=== PATIENT | male | born 1990 | race Caucasian/White ===

== ENCOUNTER → 2016-04-13 | Outpatient (REF) | payer OTHER ==
[~2016-04-13] MED LIST: ADDE20TA PO; ADDE30CA PO; BACT2CRE TOP; BACT800T5 PO; BUPR150T3 PO; HYDR-3363 PO; HYDRO50TAB PO; MELA10CA PO; PAXI10TA2 PO; TRAZ50TA2 PO; WELLTAB40 PO; ZOLO50TA PO; no home meds
[2016-04-13 12:51] LABS: ALBUMIN 4.3 GM/DL (3.2-5.2); ALBUMIN/GLOBULIN RATIO 1.26 (1.00-1.93); BILIRUBIN,DIRECT 0.1 MG/DL (0.0-0.2); BILIRUBIN,TOTAL 0.6 MG/DL (0.2-1.0); TOTAL PROTEIN 7.7 GM/DL (6.4-8.2)
[2016-04-15 14:16] LABS: HEPATITIS C QUANTITATION 4040 IU/mL (.)
== END ==
LOC: M SFHCPLAZ 08:53
PROVIDERS: ATTEND Internal Medicine Infectious Disease
DX: B19.20 Unspecified viral hepatitis C without hepatic coma (principal)

== ENCOUNTER → 2016-09-24 | Outpatient (CLI) | payer OTHER ==
[~2016-09-24] MED LIST changes: +PAXI10TA12 PO; -PAXI10TA2 PO
--- NOTE | 2016-09-24 15:29 | REP ---
THORACIC SPINE: Three AP and lateral views of the thoracic spine are performed and demonstrate no evidence of compression fracture or malalignment. There is normal thoracic kyphosis. There is very mild disc space narrowing and subchondral sclerosis at a few consecutive mid thoracic disc levels. The posterior elements are intact. There is mild curvature toward the right. IMPRESSION: Mild degenerative disc changes mid thoracic spine region. Mild curvature toward the right. Signed by Cornelius Cheney MD 09/24/2016 03:50 P
== END ==
LOC: M WUC 14:47
PROVIDERS: ATTEND Physician Assistant
DX: M54.6 Pain in thoracic spine (principal); M40.04 Postural kyphosis, thoracic region; M51.84 Other intervertebral disc disorders, thoracic region

== ENCOUNTER → 2016-10-19 | Outpatient (REF) | payer OTHER ==
[2016-10-19 12:27] LABS: ALBUMIN 4.6 GM/DL (3.2-5.2); ALBUMIN/GLOBULIN RATIO 1.21 (1.00-1.93); BILIRUBIN,DIRECT 0.4 MG/DL (0.0-0.2); BILIRUBIN,TOTAL 1.4 MG/DL (0.2-1.0); TOTAL PROTEIN 8.4 GM/DL (6.4-8.2)
[2016-10-21 00:06] LABS: HEPATITIS C QUANTITATION 506810 IU/mL (.)
== END ==
LOC: M SFHCPLAZ 10:07
PROVIDERS: ATTEND Internal Medicine Infectious Disease
DX: B19.20 Unspecified viral hepatitis C without hepatic coma (principal)

== ENCOUNTER 2016-11-18 10:48 | Emergency (ER) | payer OTHER ==
[~2016-11-18] VITALS: Ht 188 cm; Wt 86.4 kg
[2016-11-18 12:45] VITALS: BP 135/71
== END 2016-11-18 12:46 | disposition home or self-care (01) ==
LOC: M ED 10:48
DX: F11.10 Opioid abuse, uncomplicated (principal); F32.9 Major depressive disorder, single episode, unspecified

== ENCOUNTER → 2016-11-23 | Outpatient (REF) | payer OTHER ==
[2016-11-23 19:44] LABS: ALBUMIN 4.3 GM/DL (3.2-5.2); ALBUMIN/GLOBULIN RATIO 1.13 (1.00-1.93); BILIRUBIN,DIRECT 0.2 MG/DL (0.0-0.2); BILIRUBIN,TOTAL 0.6 MG/DL (0.2-1.0); TOTAL PROTEIN 8.1 GM/DL (6.4-8.2)
[2016-11-26 10:14] LABS: HEPATITIS C QUANTITATION 59120 IU/mL (.)
== END ==
LOC: M SFHCPLAZ 15:56
PROVIDERS: ATTEND Internal Medicine Infectious Disease
DX: B19.20 Unspecified viral hepatitis C without hepatic coma (principal)

== ENCOUNTER → 2016-11-30 | Outpatient (REF) | payer OTHER | LOC: CANPREREF → M SFHCPLAZ 08:41 | PROVIDERS: ATTEND Internal Medicine Infectious Disease | DX: B19.20 Unspecified viral hepatitis C without hepatic coma (principal); Z53.8 Procedure and treatment not carried out for other reasons ==

== ENCOUNTER → 2017-07-08 | Outpatient (CLI) | payer MEDICAID | LOC: M OUTALCOH 07:39 | DX: Z13.9 Encounter for screening, unspecified (principal); F11.20 Opioid dependence, uncomplicated; F15.20 Other stimulant dependence, uncomplicated; F10.20 Alcohol dependence, uncomplicated ==

== ENCOUNTER 2017-07-20 15:42 | Outpatient (RCR) | payer MEDICAID | END 2017-08-05 | LOC: M OUTALCOH 07-26 14:00 | DX: F11.20 Opioid dependence, uncomplicated (principal); F12.20 Cannabis dependence, uncomplicated; F15.20 Other stimulant dependence, uncomplicated ==

== ENCOUNTER 2017-08-16 11:19 | Outpatient (RCR) | payer MEDICAID | END 2017-09-04 | LOC: M OUTALCOH 08-18 16:00 | DX: F11.20 Opioid dependence, uncomplicated (principal); F12.20 Cannabis dependence, uncomplicated; F15.20 Other stimulant dependence, uncomplicated ==

== ENCOUNTER 2017-09-15 10:24 | Outpatient (RCR) | payer MEDICAID | END 2017-10-05 | LOC: M OUTALCOH 09-22 11:00 | DX: F11.20 Opioid dependence, uncomplicated (principal); F12.20 Cannabis dependence, uncomplicated; F15.20 Other stimulant dependence, uncomplicated ==

== ENCOUNTER 2019-11-12 18:15 | Emergency (ER) | payer MEDICAID, OTHER ==
[~2019-11-12] VITALS: Ht 188 cm; Wt 94.6 kg
[~2019-11-12 18:15] MED LIST changes: +HYDR-4274 PO; -HYDRO50TAB PO
[2019-11-12 18:16] VITALS: BP 150/96
[2019-11-12] MEDS ORDERED: QUET5TAB (18:37)
[2019-11-12] MEDS ORDERED: GABA-845 (18:37)
[2019-11-12] MEDS ORDERED: SUBO8MIS (18:37)
[2019-11-12] MEDS ORDERED: FLUO20CA22 (18:37)
[2019-11-12 20:01] LABS: BASO % 0.5 % (0.0-1.0); EOS # 0.2 10^3/uL (0.0-0.5); EOS % 2.1 % (0.0-3.0); HEMATOCRIT 43.1 % (42.0-52.0); HEMOGLOBIN 14.3 g/dl (13.5-17.5); LYMPH # 2.2 10^3/uL (1.5-5.0); LYMPH % 25.4 % (24.0-44.0); MEAN CORPUSCULAR HEMOGLOBIN 28.9 pg (27.0-33.0); MEAN CORPUSCULAR HGB CONC 33.2 g/dl (32.0-36.5); MEAN CORPUSCULAR VOLUME 87.2 fl (80.0-96.0); MONO % 10.9 % (0.0-5.0); NEUTROPHILS # 5.3 10^3/uL (1.5-8.5); NEUTROPHILS % 60.9 % (36.0-66.0); PLATELET COUNT, AUTOMATED 255 10^3/uL (150-450); RED BLOOD COUNT 4.94 10^6/uL (4.30-6.10); WHITE BLOOD COUNT 8.7 10^3/uL (4.0-10.0)
[2019-11-12 20:26] LABS: ALBUMIN 4.2 GM/DL (3.2-5.2); ALT/SGPT 20 U/L (12-78); BILIRUBIN,DIRECT 0.1 MG/DL (0.0-0.2); BILIRUBIN,TOTAL 0.3 MG/DL (0.2-1.0); BLOOD UREA NITROGEN 11 MG/DL (7-18); C REACTIVE PROTEIN QUANTITATIV 0.48 MG/DL (0.00-0.30); CALCIUM LEVEL 9.4 MG/DL (8.5-10.1); CARBON DIOXIDE LEVEL 28 MEQ/L (21-32); CHLORIDE LEVEL 103 MEQ/L (98-107); GLOMERULAR FILTRATION RATE > 60.0 (>60); GLUCOSE, FASTING 100 MG/DL (70-100); POTASSIUM SERUM 3.8 MEQ/L (3.5-5.1); SODIUM LEVEL 138 MEQ/L (136-145)
[2019-11-12 21:06] LABS: ERYTHROCYTE SEDIMENTATION RATE 12 mm/hr (0-15)
[2019-11-12 21:49] LABS: CHLAMYDIA DNA AMPLIFICATION POSITIVE (NEGATIVE); GC DNA AMPLIFICATION NEGATIVE (NEGATIVE)
[2019-11-12] MEDS ORDERED: MUPI2OI TOP (22:18)
[2019-11-12] MEDS ORDERED: cefTRIAXone SOD 250MG VIAL (J0696 PER 250MG) IM ONE (22:30)
[2019-11-12] MEDS ORDERED: LIDOCAINE 1% SDV 5ML VIAL DILUENT ONE (22:30)
[2019-11-12] MEDS ORDERED: AZITHROMYCIN 250MG TABLET PO ONE (22:30)
[2019-11-14 11:29] LABS: HEPATITIS B SURFACE ANTIBODY POSITIVE (POSITIVE)
[2019-11-14 11:39] LABS: HEPATITIS B SURFACE ANTIGEN NEGATIVE (NEGATIVE)
[2019-11-14 12:09] LABS: HIV 1&2 SCREEN CENTAUR NEGATIVE (NEGATIVE)
[2019-11-14 12:15] LABS: HEPATITIS C VIRUS ABY INDEX > 11.0 INDEX (<0.8)
== END 2019-11-12 22:49 | disposition home or self-care (01) ==
LOC: M ED 18:15
DX: A56.8 Sexually transmitted chlamydial infection of other sites (principal); F42.4 Excoriation (skin-picking) disorder; F11.188 Opioid abuse with other opioid-induced disorder; R56.9 Unspecified convulsions; F33.9 Major depressive disorder, recurrent, unspecified; F41.9 Anxiety disorder, unspecified; B19.20 Unspecified viral hepatitis C without hepatic coma; Z79.899 Other long term (current) drug therapy; F17.210 Nicotine dependence, cigarettes, uncomplicated
CPT/HCPCS: 36415; 80048; 80076; 81001; 85025; 85652; 86140; 86706; 86780; 86803; 87040; 87340; 87389; 87521; 87661; 96372; 99283; J0696

== ENCOUNTER 2020-09-07 15:03 | Inpatient (IN) | payer MEDICAID, OTHER ==
[~2020-09-07] VITALS: Ht 188 cm; Wt 97.1 kg
[~2020-09-07 15:03] MED LIST changes: +BUPR150T12 PO; -BUPR150T3 PO; +BUPR8SUB; +FLUO20CA22 PO; +GABA-283; +MUPI2OI TOP; +NALO25TA; +QUET50TA3; +SUBO8MIS
[2020-09-07 15:58] LABS: HEMOGLOBIN 12.8 g/dl (13.5-17.5); MEAN CORPUSCULAR HEMOGLOBIN 28.6 pg (27.0-33.0); MEAN CORPUSCULAR VOLUME 89.5 fl (80.0-96.0); PLATELET COUNT, AUTOMATED 220 10^3/uL (150-450); RED BLOOD COUNT 4.47 10^6/uL (4.30-6.10); WHITE BLOOD COUNT 5.9 10^3/uL (4.0-10.0)
[2020-09-07 16:46] LABS: ACETAMINOPHEN LEVEL < 2.0 UG/ML (10.0-30.0); ALBUMIN 4.1 GM/DL (3.2-5.2); ALT/SGPT 19 U/L (12-78); BILIRUBIN,DIRECT < 0.1 MG/DL (0.0-0.2); BILIRUBIN,TOTAL 0.2 MG/DL (0.2-1.0); BLOOD UREA NITROGEN 13 MG/DL (7-18); CALCIUM LEVEL 8.7 MG/DL (8.5-10.1); CARBON DIOXIDE LEVEL 32 MEQ/L (21-32); CHLORIDE LEVEL 106 MEQ/L (98-107); CREATININE FOR GFR 0.89 MG/DL (0.70-1.30); ETHYL ALCOHOL (ETHANOL) < 0.003 % (0.000-0.010); GLOMERULAR FILTRATION RATE > 60.0 (>60); GLUCOSE, FASTING 120 MG/DL (70-100); POTASSIUM SERUM 4.5 MEQ/L (3.5-5.1); SALICYLATE LEVEL < 1.7 MG/DL (5.0-30.0); SODIUM LEVEL 139 MEQ/L (136-145); THYROID STIMULATING HORMONE 0.654 uIU/ML (0.358-3.740); TOTAL PROTEIN 6.9 GM/DL (6.4-8.2)
[2020-09-07] MEDS ORDERED: PRAZ2CAP PO (18:38)
[2020-09-07] MEDS ORDERED: BUPR1FIL SL (18:38)
[2020-09-07] MEDS ORDERED: CLON-412 PO (18:38)
[2020-09-07] MEDS ORDERED: TOPI25TA10 PO (18:38)
[2020-09-07] MEDS ORDERED: GABA-283 PO (18:38)
[2020-09-07] MEDS ORDERED: TRAZ-252 PO (18:38)
[2020-09-07 19:01] LABS: AMPHETAMINES LEVEL URINE NEGATIVE (NEGATIVE); BARBITURATES URINE NEGATIVE (NEGATIVE); BENZODIAZEPINES URINE NEGATIVE (NEGATIVE); CANNABINOIDS URINE POSITIVE (NEGATIVE); COCAINE METABOLITE URINE NEGATIVE (NEGATIVE); METHADONE URINE NEGATIVE (NEGATIVE); OPIATES URINE NEGATIVE (NEGATIVE); PHENCYCLIDINE URINE NEGATIVE (NEGATIVE)
[2020-09-07] MEDS ORDERED: TOPIRAMATE (TopAMAX) 25 MG TAB PO ONE (19:25)
[2020-09-07] MEDS ORDERED: GABAPENTIN 400MG CAP PO ONE (19:25)
[2020-09-07] MEDS ORDERED: traZODone 50 MG TAB PO ONE (19:25)
[2020-09-07] MEDS: PRAZOSIN 1 MG CAP PO SCH ×2 (20:35→20:39)
[2020-09-08] MEDS ORDERED: cloNIDine 0.1MG TABLET PO PRN (08:45)
[2020-09-08] MEDS ORDERED: FLUoxetine 20 MG CAP PO ONE (08:45)
[2020-09-08] MEDS ORDERED: NICOTINE 21MG/24HR 1 EA TRANSDERMAL TD ONE (08:45)
[2020-09-08] MEDS ORDERED: GABAPENTIN 400MG CAP PO ONE ×2 (08:45→21:00)
[2020-09-08] MEDS: BUPRENORPHINE/NALOXONE 8-2MG SUBLINGUAL TABLET(SUBOXONE) SL SCH (09:02)
--- NOTE | 2020-09-08 18:10 | ECGEPIP ---
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
[2020-09-08] MEDS ORDERED: ACETAMINOPHEN TAB 650MG DOSE (2X325MG) PO ONE (21:00)
[2020-09-08] MEDS ORDERED: TOPIRAMATE (TopAMAX) 25 MG TAB PO ONE (21:00)
[2020-09-08] MEDS ORDERED: traZODone 50 MG TAB PO ONE (21:00)
[2020-09-08] MEDS: PRAZOSIN 1 MG CAP PO SCH (21:33)
[2020-09-09] MEDS ORDERED: OLANZapine ORAL DISINTEGRATING TAB 5MG PO ONE (02:40)
[2020-09-09] MEDS: BUPRENORPHINE/NALOXONE 8-2MG SUBLINGUAL TABLET(SUBOXONE) SL SCH (11:01)
[2020-09-09] MEDS: GABAPENTIN 400MG CAP PO SCH ×3 (11:01→21:11)
[2020-09-09] MEDS: FLUoxetine 20 MG CAP PO SCH (11:01)
[2020-09-09] MEDS ORDERED: NICOTINE 21MG/24HR 1 EA TRANSDERMAL TD ONE (12:45)
[2020-09-09 13:19] LABS: HEPATITIS B SURFACE ANTIBODY POSITIVE (POSITIVE); HEPATITIS B SURFACE ANTIGEN NEGATIVE (NEGATIVE); HIV 1&2 SCREEN CENTAUR NEGATIVE (NEGATIVE)
[2020-09-09 14:18] LABS: HEPATITIS C VIRUS ABY INDEX > 11.0 INDEX (<0.8)
[2020-09-09] MEDS ORDERED: traZODone 50 MG TAB PO SCH (21:00)
[2020-09-09] MEDS ORDERED: TOPIRAMATE (TopAMAX) 25 MG TAB PO SCH (21:00)
[2020-09-09] MEDS: PRAZOSIN 1 MG CAP PO SCH (21:12)
[2020-09-09] MEDS ORDERED: cloNIDine 0.1MG TABLET PO ONE (21:30)
[2020-09-10] MEDS: GABAPENTIN 400MG CAP PO SCH ×3 (08:55→20:12)
[2020-09-10] MEDS: BUPRENORPHINE/NALOXONE 8-2MG SUBLINGUAL TABLET(SUBOXONE) SL SCH (08:55)
[2020-09-10] MEDS: FLUoxetine 20 MG CAP PO SCH (08:55)
[2020-09-10 11:35] LABS: RSV AMPLIFICATION NEGATIVE (NEGATIVE)
[2020-09-10] MEDS ORDERED: cloNIDine 0.1MG TABLET PO ONE (12:40)
[2020-09-10] MEDS ORDERED: traZODone 50 MG TAB PO PRN (12:55)
[2020-09-10] MEDS ORDERED: MOM 30ML SUSPENSION UDC PO PRN (12:55)
[2020-09-10] MEDS ORDERED: MAALOX 30 ML SUSP *UDC PO PRN (12:55)
[2020-09-10 14:52] VITALS: BP 123/69
[2020-09-10] MEDS: NICOTINE 21MG/24HR 1 EA TRANSDERMAL TD SCH (15:40)
[2020-09-10] MEDS: cloNIDine 0.1MG TABLET PO PRN (20:11)
[2020-09-10] MEDS: traZODone 50 MG TAB PO SCH (20:12)
[2020-09-10] MEDS: PRAZOSIN 1 MG CAP PO SCH (20:12)
[2020-09-10] MEDS: TOPIRAMATE (TopAMAX) 25 MG TAB PO SCH (20:12)
[2020-09-11] MEDS: ACETAMINOPHEN TAB 650MG DOSE (2X325MG) PO PRN (05:55)
[2020-09-11 06:22] VITALS: BP 142/74
[2020-09-11] MEDS: BUPRENORPHINE/NALOXONE 8-2MG SUBLINGUAL TABLET(SUBOXONE) SL SCH (08:13)
[2020-09-11] MEDS: GABAPENTIN 400MG CAP PO SCH ×3 (08:13→21:31)
[2020-09-11] MEDS: FLUoxetine 20 MG CAP PO SCH (08:13)
[2020-09-11] MEDS: NICOTINE 21MG/24HR 1 EA TRANSDERMAL TD SCH (08:14)
[2020-09-11] MEDS: cloNIDine 0.1MG TABLET PO PRN (09:57)
[2020-09-11] MEDS: OLANZapine ORAL DISINTEGRATING TAB 5MG PO PRN (15:19)
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
[2020-09-11] MEDS: PANTOPRAZOLE 40MG TAB (PROTONIX) PO SCH (17:48)
[2020-09-11 18:10] LABS: BASO % 0.7 % (0.0-1.0); EOS # 0.2 10^3/uL (0.0-0.5); EOS % 3.3 % (0.0-3.0); HEMATOCRIT 43.2 % (42.0-52.0); HEMOGLOBIN 14.1 g/dl (13.5-17.5); LYMPH # 2.7 10^3/uL (1.5-5.0); LYMPH % 45.9 % (24.0-44.0); MEAN CORPUSCULAR HEMOGLOBIN 28.7 pg (27.0-33.0); MEAN CORPUSCULAR HGB CONC 32.6 g/dl (32.0-36.5); MONO # 0.5 10^3/uL (0.0-0.8); MONO % 7.8 % (2.0-8.0); NEUTROPHILS # 2.5 10^3/uL (1.5-8.5); NEUTROPHILS % 42.3 % (36.0-66.0); PLATELET COUNT, AUTOMATED 240 10^3/uL (150-450); RED BLOOD COUNT 4.91 10^6/uL (4.30-6.10); WHITE BLOOD COUNT 5.8 10^3/uL (4.0-10.0)
[2020-09-11 19:22] VITALS: BP 129/65
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
[2020-09-11] MEDS: MIRALAX *UNIT DOSE* 17GM PACKET PO SCH (21:00)
[2020-09-11] MEDS: traZODone 50 MG TAB PO SCH (21:27)
[2020-09-11] MEDS: PRAZOSIN 1 MG CAP PO SCH (21:30)
[2020-09-11] MEDS: TOPIRAMATE (TopAMAX) 25 MG TAB PO SCH (21:31)
[2020-09-12 06:50] VITALS: BP 137/67
[2020-09-12] MEDS: MIRALAX *UNIT DOSE* 17GM PACKET PO SCH ×2 (08:05→20:11)
[2020-09-12] MEDS: BUPRENORPHINE/NALOXONE 8-2MG SUBLINGUAL TABLET(SUBOXONE) SL SCH (08:08)
[2020-09-12] MEDS: FLUoxetine 20 MG CAP PO SCH (08:08)
[2020-09-12] MEDS: NICOTINE 21MG/24HR 1 EA TRANSDERMAL TD SCH (08:08)
[2020-09-12] MEDS: GABAPENTIN 400MG CAP PO SCH (08:08)
[2020-09-12] MEDS: PANTOPRAZOLE 40MG TAB (PROTONIX) PO SCH ×2 (08:08→20:07)
[2020-09-12] MEDS: cloNIDine 0.1MG TABLET PO PRN ×2 (08:09→20:09)
[2020-09-12] MEDS: ACETAMINOPHEN TAB 650MG DOSE (2X325MG) PO PRN ×2 (08:46→20:11)
[2020-09-12] MEDS: OLANZapine ORAL DISINTEGRATING TAB 5MG PO PRN (10:32)
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
[2020-09-12] MEDS: BISACODYL 5 MG TAB PO SCH (15:34)
[2020-09-12] MEDS: GABAPENTIN 300 MG CAP PO SCH ×2 (15:34→20:06)
[2020-09-12 17:22] VITALS: BP 144/66
[2020-09-12 20:09] VITALS: BP 141/63
[2020-09-12] MEDS ORDERED: TOPIRAMATE (TopAMAX) 25 MG TAB PO SCH (21:00)
[2020-09-12] MEDS ORDERED: QUEtiapine FUMARATE 50MG TAB PO SCH (21:00)
[2020-09-13 06:00] VITALS: BP 114/54
[2020-09-13] MEDS: GABAPENTIN 300 MG CAP PO SCH (08:04)
[2020-09-13] MEDS: NICOTINE 21MG/24HR 1 EA TRANSDERMAL TD SCH (08:04)
[2020-09-13] MEDS: BISACODYL 5 MG TAB PO SCH (08:04)
[2020-09-13] MEDS: MIRALAX *UNIT DOSE* 17GM PACKET PO SCH (08:34)
[2020-09-13] MEDS: PANTOPRAZOLE 40MG TAB (PROTONIX) PO SCH (08:34)
[2020-09-13] MEDS: BUPRENORPHINE/NALOXONE 8-2MG SUBLINGUAL TABLET(SUBOXONE) SL SCH (08:34)
[2020-09-13] MEDS ORDERED: FLUoxetine 20 MG CAP PO SCH (09:00)
[2020-09-13] MEDS: ACETAMINOPHEN TAB 650MG DOSE (2X325MG) PO PRN (09:24)
--- NOTE | 2020-09-13 09:24 | MHIPNPDOC ---
[facility] Progress Note Progress Note DATE OF SERVICE: 09/13/20 The patient is tolerating the medication change very well and has no complaint of side effect. He slept very well last night with the Seroquel and denies any serious anxiety and denies any suicidal thoughts. He is being referred to [facility] for supportive living and he is willing to cooperate. He is not showing any acute withdrawal symptoms and maintaining good control and has no physical complaints and is willing to cooperate with discharge plan. HISTORY:. VITAL SIGNS: See below. NEW TEST RESULTS:. CURRENT MEDICATIONS: See below. MENTAL STATUS EXAMINATION: Patient is a 30-year old male, who is in no acute distress. Speech: Is rational and coherent. Language skills are fair. Thought processes including: Relevant but not very productive. Thought content: Denies any hallucination paranoia. Abstract reasoning, and com putation: Fair. Description of associations: Organized. Description of abnormal or psychotic thoughts: Denies any psychotic symptoms. Judgment: Fair. Insight: Fair.. Orientation: Oriented. Recent and remote memory: No gross impairment. Attention span and concentration: Fair. Language:. Fund of knowledge:. Mood: Moderately anxious. Affect: A little blunted but appropriate. DIAGNOSES: 1.. Depressive disorder NOS 2.. Polysubstance abuse 3.. ASSESSMENT: No new complaint and maintaining good control and willing to cooperate with discharge plan MANAGEMENT PLAN:. Is referred to TLS continue with the current medicine TIME SPENT: 20 minutes. Vital Signs Vital Signs Date Time Temp Pulse Resp B/P (MAP) Pulse Ox O2 Delivery O2 Flow Rate FiO2 09/13/20 06:00 97.9 65 20 114/54 (74) 100 09/12/20 06:50 Room Air Current Medications Current Medications Medications (Trade) Dose Ordered Sig/Padmaja Route PRN Reason Start Time Stop Time Status Last Admin Dose Admin Acetaminophen (Tylenol Tab) 650 mg Q6HP PRN PO HEADACHE or MILD DISCOMFORT 09/10/20 12:55 09/12/20 20:11 Al Hydrox/Mg Hydrox/Simethicone (Mylanta) 30 ml Q4HP PRN PO HEARTBURN/INDIGESTION 09/10/20 12:55 Bisacodyl (Dulcolax Tab) 5 mg DAILY PO 09/12/20 15:00 09/13/20 08:04 Buprenorphine/ Naloxone (Suboxone 8/2mg) 2 tab DAILY SL 09/08/20 09:00 09/10/20 13:04 DC 09/10/20 08:55 Buprenorphine/ Naloxone (Suboxone 8/2mg) 2 tab DAILY SL 09/11/20 09:00 09/13/20 08:34 Clonidine HCl (Catapres) 0.1 mg TID PRN PO ANXIETY 09/08/20 08:45 09/10/20 13:04 DC 09/08/20 13:11 Clonidine HCl (Catapres) 0.1 mg TID PRN PO ANXIETY 09/10/20 16:10 09/12/20 20:09 Fluoxetine HCl (PROzac) 20 mg DAILY PO 09/09/20 09:00 09/10/20 13:04 DC 09/10/20 08:55 Fluoxetine HCl (PROzac) 20 mg DAILY PO 09/11/20 09:00 09/12/20 10:45 DC 09/12/20 08:08 Fluoxetine HCl (PROzac) 40 mg DAILY PO 09/13/20 09:00 09/13/20 08:04 Gabapentin (Neurontin) 400 mg TID PO 09/09/20 09:00 09/10/20 13:04 DC 09/10/20 08:55 Gabapentin (Neurontin) 400 mg TID PO 09/10/20 16:00 09/12/20 10:45 DC 09/12/20 08:08 Gabapentin (Neurontin) 600 mg TID PO 09/12/20 16:00 09/13/20 08:04 Home Med (Med Rec Complete!) ASDIRECTED XX 09/07/20 18:45 09/07/20 18:49 DC Magnesium Hydroxide (Milk Of Magnesia) 30 ml DAILYPRN PRN PO CONSTIPATION 09/10/20 12:55 Nicotine (Nicoderm Cq 21mg) 1 patch DAILY TD 09/10/20 09:00 09/13/20 08:04 Olanzapine (ZyPREXA ZYDIS) 5 mg Q8HP PRN PO AGITATION 09/10/20 12:55 09/12/20 10:32 Pantoprazole Sodium (Protonix) 40 mg BID PO 09/11/20 17:25 09/12/20 20:07 Polyethylene Glycol (Miralax) 1 pkt BID PO 09/11/20 21:00 Prazosin HCl (Minipress) 2 mg QHS PO 09/07/20 21:00 09/07/20 21:00 DC Prazosin HCl (Minipress) 2 mg QHS PO 09/08/20 21:00 09/10/20 13:04 DC 09/09/20 21:12 Prazosin HCl (Minipress) 2 mg QHS PO 09/10/20 21:00 09/12/20 10:45 DC 09/11/20 21:30 Quetiapine Fumarate (SEROquel) 150 mg QHS PO 09/12/20 21:00 09/12/20 20:09 Topiramate (TopAMAX) 25 mg QHS PO 09/09/20 21:00 09/10/20 13:05 DC 09/09/20 21:11 Topiramate (TopAMAX) 25 mg QHS PO 09/10/20 21:00 09/12/20 10:45 DC 09/11/20 21:31 Topiramate (TopAMAX) 50 mg QHS PO 09/12/20 21:00 09/12/20 20:07 Trazodone HCl (Desyrel) 50 mg QHS PO 09/09/20 21:00 09/10/20 13:03 DC 09/09/20 21:11 Trazodone HCl (Desyrel) 50 mg QHS PO 09/10/20 21:00 09/12/20 10:45 DC 09/11/20 21:27 Trazodone HCl (Desyrel) 50 mg QHSP PRN PO INSOMNIA 09/10/20 12:55 Allergies Coded Allergies: lactose (Verified Allergy, Severe, N/V/D, 09/07/20) MARCUS SUAREZ M.D. Sep 13, 2020 09:24
[2020-09-13] MEDS ORDERED: FLUO20CA22 PO (10:11)
[2020-09-13] MEDS ORDERED: TOPA1TAB PO (10:11)
[2020-09-13] MEDS ORDERED: QUET50TA3 PO (10:11)
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
== END 2020-09-13 11:09 | disposition home or self-care (01) | DRG 754 ==
LOC: M ED 15:03 → M ED INP 09-10 12:51 → M PSY 09-10 14:42
PROVIDERS: ADMIT Psychiatry & Neurology Psychiatry; ATTEND Psychiatry & Neurology Psychiatry
DX: F32.9 Major depressive disorder, single episode, unspecified (principal); F11.10 Opioid abuse, uncomplicated; F15.10 Other stimulant abuse, uncomplicated; F12.10 Cannabis abuse, uncomplicated; D64.9 Anemia, unspecified; K29.60 Other gastritis without bleeding; T39.395A Adverse effect of other nonsteroidal anti-inflammatory drugs [NSAID], initial encounter; Z79.899 Other long term (current) drug therapy; E73.9 Lactose intolerance, unspecified

== ENCOUNTER 2021-06-08 07:44 | Emergency (ER) | payer MEDICAID, OTHER ==
[~2021-06-08] VITALS: Ht 188 cm; Wt 109.1 kg
[~2021-06-08 07:44] MED LIST changes: +BUPR1FIL SL; +CLON-412 PO; +GABA-283 PO; +PRAZ2CAP PO; -QUET50TA3; +QUET50TA4; +QUET50TA4 PO; +TOPA1TAB PO; +TOPI25TA10 PO; +TRAZ-252 PO
[2021-06-08] MEDS ORDERED: CHARCOAL ACTIVATED LIQUID 25 GM/120 ML BTL PO ONE (07:50)
[2021-06-08] MEDS ORDERED: NS 1,000 ML IV SCH (07:50)
[2021-06-08] MEDS ORDERED: SUBO8MIS SL (07:57)
[2021-06-08] MEDS ORDERED: SERO50TA PO (07:57)
[2021-06-08] MEDS ORDERED: GABA-282 PO (07:57)
[2021-06-08 08:17] LABS: BASO % 0.6 % (0.0-1.0); EOS # 0.1 10^3/uL (0.0-0.5); EOS % 2.9 % (0.0-3.0); HEMATOCRIT 43.4 % (42.0-52.0); HEMOGLOBIN 14.5 g/dl (13.5-17.5); LYMPH # 1.5 10^3/uL (1.5-5.0); LYMPH % 31.3 % (24.0-44.0); MEAN CORPUSCULAR HEMOGLOBIN 29.4 pg (27.0-33.0); MEAN CORPUSCULAR HGB CONC 33.4 g/dl (32.0-36.5); MONO # 0.3 10^3/uL (0.0-0.8); MONO % 6.5 % (2.0-8.0); NEUTROPHILS # 2.8 10^3/uL (1.5-8.5); NEUTROPHILS % 57.9 % (36.0-66.0); PLATELET COUNT, AUTOMATED 167 10^3/uL (150-450); RED BLOOD COUNT 4.93 10^6/uL (4.30-6.10); WHITE BLOOD COUNT 4.8 10^3/uL (4.0-10.0)
[2021-06-08 09:00] LABS: ACETAMINOPHEN LEVEL < 2.0 UG/ML (10.0-30.0); ALBUMIN 3.9 GM/DL (3.2-5.2); ALT/SGPT 20 U/L (12-78); BILIRUBIN,DIRECT < 0.1 MG/DL (0.0-0.2); BILIRUBIN,TOTAL 0.3 MG/DL (0.2-1.0); BLOOD UREA NITROGEN 9 MG/DL (7-18); CARBON DIOXIDE LEVEL 28 MEQ/L (21-32); CHLORIDE LEVEL 109 MEQ/L (98-107); CREATININE FOR GFR 0.82 MG/DL (0.70-1.30); ETHYL ALCOHOL (ETHANOL) < 0.003 % (0.000-0.010); GLOMERULAR FILTRATION RATE > 60.0 (>60); GLUCOSE, FASTING 115 MG/DL (70-100); POTASSIUM SERUM 4.8 MEQ/L (3.5-5.1); SALICYLATE LEVEL 3.7 MG/DL (5.0-30.0); SODIUM LEVEL 142 MEQ/L (136-145); THYROID STIMULATING HORMONE 0.755 uIU/ML (0.358-3.740); TOTAL PROTEIN 7.4 GM/DL (6.4-8.2)
[2021-06-08 09:14] LABS: AMPHETAMINES LEVEL URINE NEGATIVE (NEGATIVE); BARBITURATES URINE NEGATIVE (NEGATIVE); BENZODIAZEPINES URINE NEGATIVE (NEGATIVE); CANNABINOIDS URINE POSITIVE (NEGATIVE); COCAINE METABOLITE URINE NEGATIVE (NEGATIVE); METHADONE URINE NEGATIVE (NEGATIVE); OPIATES URINE NEGATIVE (NEGATIVE); PHENCYCLIDINE URINE NEGATIVE (NEGATIVE)
[2021-06-08 10:03] LABS: RSV AMPLIFICATION NEGATIVE (NEGATIVE)
[2021-06-08] MEDS ORDERED: HOME MED LIST COMPLETE! XX SCH (15:30)
[2021-06-08] MEDS ORDERED: LORazepam 2 MG TAB PO STA (17:03)
[2021-06-09] MEDS: BUPRENORPHINE/NALOXONE 8-2MG SUBLINGUAL TABLET(SUBOXONE) SL SCH ×2 (09:34→16:17)
[2021-06-09] MEDS: GABAPENTIN 300 MG CAP PO SCH ×3 (09:34→16:17)
[2021-06-09] MEDS ORDERED: NICOTINE 21MG/24HR 1 EA TRANSDERMAL TD ONE (09:40)
[2021-06-09 16:55] VITALS: BP 134/85
[2021-06-09] MEDS ORDERED: QUEtiapine FUMARATE 50MG TAB PO ONE (21:00)
== END 2021-06-09 16:55 ==
LOC: M ED 07:44 → EDBD 07:44 → M ED 06-09 16:55
DX: F33.9 Major depressive disorder, recurrent, unspecified (principal); T43.592A Poisoning by other antipsychotics and neuroleptics, intentional self-harm, initial encounter; Y92.89 Other specified places as the place of occurrence of the external cause; B19.20 Unspecified viral hepatitis C without hepatic coma; E73.9 Lactose intolerance, unspecified; Z79.899 Other long term (current) drug therapy; Z79.891 Long term (current) use of opiate analgesic; F17.210 Nicotine dependence, cigarettes, uncomplicated; F15.21 Other stimulant dependence, in remission

== ENCOUNTER → 2022-11-25 | Day surgery (SDC) | payer OTHER ==
[~2022-11-25] VITALS: Ht 188 cm; Wt 105.4 kg
[~2022-11-25] MED LIST changes: +DOCU100C16 PO; +GABA-282 PO; -GABA-283; -GABA-283 PO; +GABA-284; +GABA-284 PO; +GABA600T4 PO; +LAMO25TA4 PO; +LIDOCAINE 2% 100MG/5ML SDV (FOR ANES.) As Ordered ONE; +MIDAZOLAM INJ 2MG/2ML VIAL As Ordered ONE; +NS 1,000 ML IV ONE; -PAXI10TA12 PO; +PAXI10TA13 PO; +POLY510P14 PO; +SENO8.6T5 PO; +SERO50TA PO; +SUBO8MIS SL; +VRAY1.5C PO; +propofoL 200 MG/20 ML VIAL As Ordered ONE
[2022-11-25 11:16] VITALS: TEMP 97
[2022-11-25 11:35] VITALS: BP 119/66; O2SAT 100
== END | disposition home or self-care (01) ==
LOC: M OPP 09:37
PROVIDERS: ATTEND Internal Medicine Gastroenterology
DX: K63.5 Polyp of colon (principal); F41.9 Anxiety disorder, unspecified; F32.A Depression, unspecified; F43.10 Post-traumatic stress disorder, unspecified; F17.210 Nicotine dependence, cigarettes, uncomplicated; Z91.011 Allergy to milk products; Z79.899 Other long term (current) drug therapy
CPT/HCPCS: 45385; 88305; J2250